=== PATIENT | female | born 1990 | race Caucasian/White ===

== ENCOUNTER 2020-10-08 08:34 | Outpatient (CLI) | payer BC ==
[2020-10-08 22:18] LABS: SARS-CoV-2 PCR by NAA Not Detected (NotDetected)
== END 2020-10-08 08:35 | disposition home or self-care (01) ==
LOC: CSHLAB 08:34
PROVIDERS: ATTEND Obstetrics & Gynecology
DX: Z20.822 Contact with and (suspected) exposure to COVID-19 (principal)
CPT/HCPCS: 87635; U0003; U0005

== ENCOUNTER 2020-10-09 19:00 | Inpatient (IN) | payer OTHER ==
[2020-10-09] MEDS ORDERED: Bupivacaine 0.25% HCL 30 ML VIAL ONE (19:21)
[2020-10-09 21:37] VITALS: BMI 31.7
[2020-10-09] MEDS ORDERED: Butorphanol Tartrate 1 MG/ML VIAL SLOW IVP PRN (22:32)
[2020-10-09] MEDS ORDERED: hydrALAZINE 20 MG/ML VIAL SLOW IVP PRN (22:32)
[2020-10-09] MEDS ORDERED: Diphenoxylate HCl/Atropine Tablet PO PRN ×2 (22:32)
[2020-10-09] MEDS ORDERED: HYDROcodone/Acetaminophen 5/325 mg Tablet PO PRN ×2 (22:32)
[2020-10-09] MEDS ORDERED: Docusate 100 MG CAP PO PRN (22:32)
[2020-10-09] MEDS ORDERED: Acetaminophen 500 MG TAB PO PRN (22:32)
[2020-10-09] MEDS ORDERED: Lidocaine 1% (PF) 30 ML VIAL SC PRN (22:32)
[2020-10-09] MEDS ORDERED: Zolpidem Tartrate 5 MG TAB PO PRN (22:32)
[2020-10-09] MEDS ORDERED: Promethazine HCl 25 MG/ML VIAL IM PRN (22:32)
[2020-10-09] MEDS ORDERED: Carboprost 250 MCG/ML AMP IM PRN (22:32)
[2020-10-09] MEDS ORDERED: Ondansetron PF 4 MG/2 ML Vial IVP PRN (22:32)
[2020-10-09] MEDS ORDERED: Methylergonovine 0.2 MG/ML VIAL IM PRN (22:32)
[2020-10-09] MEDS ORDERED: Ibuprofen 800 MG TAB PO PRN (22:32)
[2020-10-09] MEDS ORDERED: Misoprostol 200 MCG TAB PR PRN (22:32)
[2020-10-09] MEDS: Lactated Ringer's 1,000 ML IV SCH (22:50)
[2020-10-09 22:57] LABS: Hemoglobin 11.4 g/dL (12.0-15.5); Mean Corpuscular HGB CONC 33.2 g/dL (32.0-36.0); Mean Corpuscular Volume 81.3 fl (81.6-98.3); Mean Platelet Volume 9.9 fl (7.4-10.4); Platelet Count 318 10x3/uL (150-450); RBC Distribution Width 15.2 % (11.5-14.5); Red Blood Cell (RBC) Count 4.22 10x6/uL (3.90-5.03); White Blood Cell (WBC) Count 9.4 10x3/uL (3.5-10.5)
[2020-10-09 23:28] LABS: Hep B Surf Ag Non-Reactive S/CO (NonReactive); Syphilis Antibody Nonreactive (Nonreactive); Syphilis Antibody Index 0.05 S/CO (<1.00 Non-Reactive)
[2020-10-10 00:50] LABS: HBSAg Index 0.18 S/CO (0-0.99)
[2020-10-10] MEDS ORDERED: Fentanyl 4 mcg/Bup 0.1% Cadd 100 ML ONE (09:04)
[2020-10-10] MEDS: NS w/ Oxytocin 30 units 500 ML IV PRN ×2 (09:07→15:20)
[2020-10-10] MEDS: Misoprostol 100 MCG TAB VAG SCH ×3 (09:43→16:00)
[2020-10-10] MEDS ORDERED: Ondansetron PF 4 MG/2 ML Vial IVP PRN ×2 (13:23→17:46)
[2020-10-10] MEDS ORDERED: diphenhydrAMINE 50 MG/ML VIAL IVP PRN (13:23)
[2020-10-10] MEDS ORDERED: Lactated Ringer's 500 ML IV PRN (13:23)
[2020-10-10] MEDS ORDERED: Promethazine HCl 25 MG/ML VIAL IM PRN ×2 (13:23→17:46)
[2020-10-10] MEDS ORDERED: Naloxone HCl 0.4 mg/ml Vial IVP PRN ×2 (13:23)
[2020-10-10] MEDS ORDERED: Acetaminophen 325 MG TAB PO PRN (13:23)
[2020-10-10] MEDS ORDERED: Communication Order-Pharmacy FS SCH (13:30)
[2020-10-10] MEDS ORDERED: Fentanyl 4 mcg/Bupivacaine 0.1% Cassette 100 ML EPIDURAL SCH (13:30)
[2020-10-10] MEDS ORDERED: ePHEDrine Sulfate 50 MG/10 ML VIAL SLOW IVP PRN (13:39)
[2020-10-10] MEDS: Lactated Ringer's 1,000 ML IV SCH (16:01)
[2020-10-10] MEDS ORDERED: Lanolin Ointment 7 GM TUBE TOP PRN (17:46)
[2020-10-10] MEDS ORDERED: Methylergonovine 0.2 MG/ML VIAL IM PRN (17:46)
[2020-10-10] MEDS ORDERED: Adacel (T-DAP) 0.5 ML SYRINGE IM ONE (17:46)
[2020-10-10] MEDS ORDERED: Bisacodyl 10 MG SUPP PR PRN (17:46)
[2020-10-10] MEDS ORDERED: Varicella virus, LIVE 0.5 ML VIAL SC ONE (17:46)
[2020-10-10] MEDS ORDERED: Zolpidem Tartrate 5 MG TAB PO PRN (17:46)
[2020-10-10] MEDS ORDERED: Misoprostol 200 MCG TAB VAG PRN (17:46)
[2020-10-10] MEDS ORDERED: Measles/Mumps/Rubella 10 MCG/0.5 ML VIAL SC ONE (17:46)
[2020-10-10] MEDS ORDERED: Preparation H Ointment 28 GM TUBE PR PRN (17:46)
[2020-10-10] MEDS ORDERED: Benzocaine-Menthol 82.5 ML CAN TOP PRN (17:46)
[2020-10-10] MEDS ORDERED: HYDROcodone/Acetaminophen 5/325 mg Tablet PO PRN ×2 (17:46)
[2020-10-10] MEDS ORDERED: Milk Of Magnesia 30 ML UDCUP PO PRN (17:46)
[2020-10-10] MEDS ORDERED: diphenhydrAMINE 25 MG CAP PO PRN (17:46)
[2020-10-10] MEDS ORDERED: hydrALAZINE 20 MG/ML VIAL SLOW IVP PRN (17:46)
[2020-10-10] MEDS ORDERED: NS w/ Oxytocin 30 units 500 ML IV SCH (18:15)
[2020-10-10] MEDS: Ibuprofen 800 MG TAB PO SCH (21:47)
[2020-10-10] MEDS: Docusate Calcium (SURFAK) 240 MG CAP PO SCH (21:48)
[2020-10-11] MEDS: Misoprostol 100 MCG TAB VAG SCH (02:22)
[2020-10-11] MEDS: Ibuprofen 800 MG TAB PO SCH ×2 (05:17→13:29)
[2020-10-11 07:08] LABS: Hemoglobin 10.7 g/dL (12.0-15.5); Mean Corpuscular HGB CONC 31.7 g/dL (32.0-36.0); Mean Corpuscular Hemoglobin 26.5 pg (27.0-33.0); Mean Corpuscular Volume 83.7 fl (81.6-98.3); Mean Platelet Volume 9.6 fl (7.4-10.4); Platelet Count 237 10x3/uL (150-450); RBC Distribution Width 15.5 % (11.5-14.5); Red Blood Cell (RBC) Count 4.04 10x6/uL (3.90-5.03)
[2020-10-11] MEDS ORDERED: Ferrous Sulfate 325 MG TAB PO SCH (08:00)
[2020-10-11] MEDS: Docusate Calcium (SURFAK) 240 MG CAP PO SCH (09:12)
[2020-10-11 11:04] VITALS: BP 112/72; TEMP 97.8
== END 2020-10-11 16:50 | disposition home or self-care (01) | DRG 807 ==
LOC: CSHLD 21:12 → CSHPP 10-10 17:41
PROVIDERS: ADMIT Obstetrics & Gynecology; ATTEND Obstetrics & Gynecology
PROC: 3E0P7VZ Introduction of Hormone into Female Reproductive, Via Natural or Artificial Opening (ICD-10-PCS; 2020-10-09)
PROC: 10E0XZZ Delivery of Products of Conception, External Approach (ICD-10-PCS; principal; 2020-10-10)
DX: O80 Encounter for full-term uncomplicated delivery (principal); Z37.0 Single live birth; Z3A.39 39 weeks gestation of pregnancy; Z20.822 Contact with and (suspected) exposure to COVID-19
CPT/HCPCS: 36415; 51702; 85027; 86780; 86850; 86900; 86901; 87340; 87635; J0595; J2590; S0020; U0003; U0005